=== PATIENT | female | born 1985 | race Caucasian/White ===

== ENCOUNTER 2017-10-31 13:22 | Outpatient (CLI) | payer BC ==
--- NOTE | 2017-10-31 18:06 | RAD ---
RIGHT HIP ARTHROGRAM: 10/31/17 HISTORY: 31-year-old female with history of tear right acetabular labrum, right hip pain. . FLUOROSCOPY TIME: 2.0 minutes with two portable fluoroscopic spot films. DOSE: 315.3 uGy*m2. Following informed consent, the right hip was prepped and draped in the usual sterile fashion. Local anesthesia was obtained with 1% Xylocaine. A 25 gauge spinal needle was introduced into the anterolat eral aspect of the right hip joint. A mixture of gadolinium and intravenous contrast media was inject ed. Two portable fluoroscopic spot images were performed to confirm intra-articular location. IMPRESSION: Successful right hip arthrogram. Patient tolerated the procedure well and was moved to MRI for post a rthrogram MRI to follow. POS: [facility]
--- NOTE | 2017-10-31 18:45 | MRI ---
RIGHT HIP POST ARTHROGRAM CONTRAST: 10/31/17 HISTORY: 31-year-old female with right hip pain and concern for right acetabular labral tear. [facility] Multiplanar and multisequence MRI examination of the right hip demonstrates a linear area of abnormal high signal involving the anterior labrum, evidence for a labral tear. There is no evidence for abno rmal marrow signal to suggest fracture, avascular necrosis, acute stress injury. No evidence for acu te muscle or tendon injury. IMPRESSION: Small anterior labral tear. POS: [facility]
== END 2017-10-31 13:23 | disposition home or self-care (01) ==
LOC: RAD 13:22
PROVIDERS: ATTEND Orthopaedic Surgery
DX: S73.191A Other sprain of right hip, initial encounter (principal); Z98.890 Other specified postprocedural states
CPT/HCPCS: 27093

== ENCOUNTER 2018-03-27 09:25 | Observation (INO) | payer BC ==
[2018-03-27 10:03] LABS: #Basophils 0.1 thou/uL (0.0-0.2); #Eosinphils 0.2 thou/uL (0.0-0.7); #Monocytes 0.3 thou/uL (0.11-0.59); #Neutrophils 4.4 thou/uL (1.40-6.50); %Lymphocytes 28.2 % (21.0-51.0); %Monocytes 4.7 % (0.0-10.0); %Neutrophils 63.1 % (42.0-75.0); Hemoglobin 14.4 g/dL (12.0-16.0); Mean Corpuscular HGB CONC 34.3 g/dL (32.0-36.0); Mean Corpuscular Volume 93.4 fl (81.0-99.0); Mean Platelet Volume 7.2 fL (7.4-10.4); Platelet Count 304 thou/uL (130-400); RBC Distribution Width 11.2 % (11.5-14.5); Red Blood Cell (RBC) Count 4.49 mill/uL (4.20-5.40); White Blood Cell (WBC) Count 6.9 thou/uL (4.8-10.8)
[2018-03-27] MEDS ORDERED: Ondansetron ODT 4 MG TAB ONE (10:10)
[2018-03-27 10:25] LABS: ALT (SGPT) 10 U/L (8-55); AST (SGOT) 12 U/L (5-34); Albumin 4.1 g/dL (3.5-5.0); Alkaline Phosphatase 50 U/L (40-150); Anion Gap 14 mmol/L (10-20); BUN (Urea Nitrogen) 13 mg/dL (7.0-18.7); Bilirubin, Total 0.6 mg/dL (0.2-1.2); Calc. Creatinine Clearance 0 mL/min (70-130); Calcium 9.3 mg/dL (7.8-10.44); Carbon Dioxide 20 mmol/L (22-29); Chloride 106 mmol/L (98-107); Estimated GFR-MDRD 80; Glucose 112 mg/dL (70-105); Lipase 15 U/L (8-78); Potassium 4.2 mmol/L (3.5-5.1); Protein, Total 7.1 g/dL (6.0-8.3); Sodium 136 mmol/L (136-145)
[2018-03-27 10:52] LABS: Bilirubin Negative (Negative); Blood, Urine Negative (Negative); Clarity CLOUDY (Clear); Glucose, Urine (Dipstick) Negative (Negative); Leukocyte Trace (Negative); Nitrite Negative (Negative); Protein, Urine (Dipstick) Trace mg/dL (Neg-Trace); Specific Gravity, Urine 1.019 (1.002-1.036); Urobilinogen 0.2 mg/dL (0.2-1.0); pH, Urine 7.5 (5.0-9.0)
[2018-03-27 10:55] LABS: Pregnancy Test - Urine (BHCG) Negative (Negative); Pregu Control Background? CLEAR/WHITE (CLR/WHITE); Pregu Control Bar Appear? YES (CONTROL BAR); Specific Gravity 1.019 (1.002-1.036)
[2018-03-27 10:56] LABS: Bacteria/HPF None Seen HPF (None Seen); Pathc Cast-AUWi Flag 0.58 (0-2.49); Squamous Epithelial 21-50 HPF (0-3)
[2018-03-27 11:07] LABS: Hyaline Casts/LPF 0-3 HYALINE CAST LPF (0-3 Hyaline); Renal Epithelial None Seen HPF (0-3); Transitional Epithelial 0-3 HPF (0-3)
[2018-03-27] MEDS ORDERED: ISOVUE-370 76%-LOCM 1 ML ONE (11:16)
[2018-03-27] MEDS ORDERED: Dicyclomine 20 MG TAB ONE (11:51)
--- NOTE | 2018-03-27 12:34 | CT ---
CT OF ABDOMEN AND PELVIS WITH IV CONTRAST: Date: 03-27-18 Provided Clinical History: Diffuse lower abdominal pain. FINDINGS: The visualized lung bases are free of significant opacity. The liver, spleen, pancreas, kidneys, and adrenal glands demonstrate an unremarkable CT appearance. Evaluation of the pelvis is limited due to the lack of oral contrast material. There is apparent flui d density within the small bowel mesentery in the pelvis. The appendix is incompletely visualized, th ough the visualized portions appear normal. There is no evidence for bowel obstruction. There is no e vidence for free air. Assessment for inflammatory fat stranding is limited without oral contrast give n the paucity of intraperitoneal fat. The regional vascular structures appear normal. The osseous structures demonstrate no concerning lyti c or blastic lesions. IMPRESSION: 1. Nonspecific fluid density within the small bowel mesentery within the pelvis, which may indicate a n inflammatory process. Evaluation is limited without oral contrast material. POS: [facility]
[2018-03-27] MEDS ORDERED: Metoclopramide HCl 10 MG/2 ML VIAL ONE (14:47)
[2018-03-27] MEDS ORDERED: Morphine 4 MG/ML VIAL ONE ×2 (15:13→16:56)
[2018-03-27] MEDS ORDERED: Piperacillin/Tazobactam 4.5 GM VIAL ONE (16:56)
[2018-03-27] MEDS ORDERED: HYDROcodone/Acetaminophen 5/325 mg Tablet PO PRN ×2 (18:36)
[2018-03-27] MEDS ORDERED: Ondansetron HCl/PF 4 MG/2 ML Vial IVP PRN ×2 (18:36→19:00)
[2018-03-27] MEDS ORDERED: Ondansetron ODT 4 MG TAB SL PRN (18:36)
[2018-03-27] MEDS ORDERED: Acetaminophen 325 MG TAB PO PRN ×2 (18:36→19:00)
[2018-03-27] MEDS ORDERED: Mag-Al 1200 mg/1200 mg/30 ML UDCUP PO PRN (19:00)
[2018-03-27] MEDS ORDERED: Metoclopramide HCl 10 MG/2 ML VIAL IVP PRN (19:00)
[2018-03-27] MEDS ORDERED: Ondansetron ODT 4 MG TAB PO PRN (19:00)
[2018-03-27] MEDS ORDERED: Morphine 4 MG/ML VIAL SLOW IVP PRN ×2 (19:00)
--- NOTE | 2018-03-27 19:33 | HP ---
PRIMARY CARE PHYSICIAN: Dr. Regalado. CHIEF COMPLAINT: Abdominal pain. HISTORY OF PRESENT ILLNESS: Ms. Betancur is a pleasant 32-year-old female that has no significant histor y except for migraine headaches. She says that she was doing fine until about 7:30 this morning when she awoke with severe abdominal pain. She says that she thought it could be because she had not had a bowel movement on the day before, so she says she drinks a glass of water and tried to sit on the commode with no relief, then she says she started having severe pain and a massive sweat and thought that she was going to pass out. By that time, she did have a bowel movement. It was normal and she thought the pain would get better, but it did not. She says then she started vomiting. She says she believes she vomited about 18 times. She says the vomiting will occur after the pain got excruciati ngly bad. She says that the pain is worse when she stands up straight or if she lays flat, otherwise it is constant and it is there and it is about 10/10. She says she has never had pain like this bef ore. The only thing that she notes is that recently she had seen a set up inspector because she thought that she was having some type of MANAGER CASE problem due to some lower abdominal pain. She said she had a tr ansvaginal ultrasound reportedly this was normal, but it was found that she was constipated and was t old to take MiraLax and it actually got better. She was also around the same time placed empirically on Protonix due to possible gastritis and she said she finished the Protonix about 2 days ago. Othe rwise, the patient says she continues to have pain despite being on morphine. CT scan in the ER was essentially negative as well as her lab work and she is being placed in observation. REVIEW OF SYSTEMS: Constitutional: No fevers, chills, no night sweats, no weight loss. HEENT: No headaches, no dizziness, no visual changes, no sore throat, rhinorrhea, neck pain, no adenopathy. Pu lmonary: No hemoptysis, no cough, no wheezing. Cardiovascular: She denies any chest pain, no short ness of breath, no PND, no orthopnea. Gastrointestinal: Is as the history of present illness. Ther e has been no hemoptysis, no melena. Genitourinary: No urinary frequency, hematuria, no hesitancy. Musculoskeletal: No muscle pains, weakness or joint pains. Neurologic: No focal weakness, numbnes s, no seizures. Psychiatric: No symptoms of anxiety or depression. Skin and Integument: No skin c hanges. No rash. PAST MEDICAL HISTORY: Significant for migraine headaches and hypoglycemia, she says when she was muc h younger to the point where she would pass out. PAST SURGICAL HISTORY: She has had a right hip surgery due to a torn labrum and also wisdom teeth re moved. ALLERGIES: Skelaxin. SOCIAL HISTORY: She is , no children. She is a former smoker. She quit 6 years ago. Prior to that, she smoked for about 7 years, half a pack a day, occasionally drinks. No illicit drug use. FAMILY HISTORY: Significant for hypertension in her mother as well as asthma and neuropathy in her f ather, which was not due to diabetes. MEDICATIONS: Inderal, Minastrin, tramadol and Tylenol No. 3. PHYSICAL EXAMINATION: GENERAL: She is well-developed and well-nourished. HEENT: Pupils are equal, round, and reactive. Extraocular muscles are intact. Sclerae are anicteri c. Throat: There is no erythema, no exudates. NECK: No adenopathy, no bruits. LUNGS: Clear to auscultation bilaterally. There is no wheezing, no rales. CARDIOVASCULAR: She has a normal S1, S2. I do not appreciate an S3 or S4. No murmurs, clicks or ru bs. ABDOMEN: Soft. She has some diffuse tenderness primarily in the right and left lower quadrants. Th ere was no guarding. She has a positive bowel sounds and there is no organomegaly. EXTREMITIES: There is no clubbing, cyanosis, no edema. NEUROLOGICALLY: The exam is grossly nonfocal. SKIN/INTEGUMENT: There are no skin changes. No rashes. SIGNIFICANT LABORATORY DATA: White blood cell count was 6.9, hemoglobin 14.4, hematocrit is 41.9, pl atelet count is 304. Sodium 136, potassium 4.2, chloride is 106, CO2 is 20, BUN of 13, creatinine 0. 83, glucose is 112. Urinalysis was essentially negative. Urine test was negative. She cook d a CT scan of the abdomen and pelvis and there was some nonspecific fluid density in the small bowel mesentery, which may indicate an inflammatory process. ASSESSMENT AND PLAN: This is a 32-year-old female that presents with intractable abdominal pain for the last almost 12 hours now. It has been only partially relieved with morphine; however, she does n ot have any worrisome findings such as elevated white blood cell count or findings to suggest obstruc tion on CT scan. Lipase was normal and there is no fever; however, due to her continued pain, she wi ll be placed in observation, placed on fluid resuscitation as well as IV antiemetics and medication f or pain. Given no evidence of infection, we will hold off on any antibiotics at this time and repeat her chemistry panel and CBC in the morning and repeat her abdominal exam. It is possible that this could be some type of viral syndrome and hopefully we will resolve spontaneously. Otherwise, if ther e is no resolution of her symptoms, then GI can be consulted. We will also get an KOBE and the remote possibility that this could be autoimmune in nature.
[2018-03-27 19:39] LABS: Complement-C4 22.9 mg/dL (15-57)
[2018-03-27 20:08] VITALS: BMI 18.8
[2018-03-27] MEDS: Sodium Chloride 0.9% 1,000 ML IV SCH (20:26)
[2018-03-27] MEDS: Famotidine 20 MG TAB PO SCH (20:29)
[2018-03-27] MEDS: HYDROcodone/Acetaminophen 5/325 mg Tablet PO PRN (22:07)
[2018-03-28] MEDS: Sodium Chloride 0.9% 1,000 ML IV SCH ×2 (03:55→11:15)
[2018-03-28 04:17] LABS: #Eosinphils 0.1 thou/uL (0.0-0.7); #Lymphocytes 2.2 thou/uL (1.20-3.40); #Monocytes 0.6 thou/uL (0.11-0.59); #Neutrophils 6.8 thou/uL (1.40-6.50); %Basophils 0.3 % (0.0-1.0); %Eosinophils 0.7 % (0.0-10.0); %Lymphocytes 22.6 % (21.0-51.0); %Monocytes 6.2 % (0.0-10.0); %Neutrophils 70.2 % (42.0-75.0); Hemoglobin 12.7 g/dL (12.0-16.0); Mean Corpuscular HGB CONC 34.3 g/dL (32.0-36.0); Mean Corpuscular Hemoglobin 32.1 pg (27.0-31.0); Mean Corpuscular Volume 93.5 fl (81.0-99.0); Mean Platelet Volume 7.1 fL (7.4-10.4); Platelet Count 259 thou/uL (130-400); Red Blood Cell (RBC) Count 3.97 mill/uL (4.20-5.40); White Blood Cell (WBC) Count 9.6 thou/uL (4.8-10.8)
[2018-03-28 04:44] LABS: ALT (SGPT) 8 U/L (8-55); AST (SGOT) 13 U/L (5-34); Albumin 3.5 g/dL (3.5-5.0); Alkaline Phosphatase 40 U/L (40-150); Anion Gap 12 mmol/L (10-20); BUN (Urea Nitrogen) 13 mg/dL (7.0-18.7); Bilirubin, Total 0.6 mg/dL (0.2-1.2); Calc. Creatinine Clearance 112 mL/min (70-130); Calcium 8.5 mg/dL (7.8-10.44); Carbon Dioxide 21 mmol/L (22-29); Chloride 109 mmol/L (98-107); Estimated GFR-MDRD Greater than 90; Globulin 2.3 g/dL (2.4-3.5); Glucose 72 mg/dL (70-105); Lipase 6 U/L (8-78); Potassium 3.9 mmol/L (3.5-5.1); Protein, Total 5.8 g/dL (6.0-8.3); Sodium 138 mmol/L (136-145)
[2018-03-28] MEDS: HYDROcodone/Acetaminophen 5/325 mg Tablet PO PRN (06:30)
[2018-03-28] MEDS: Famotidine 20 MG TAB PO SCH (07:52)
[2018-03-28] MEDS ORDERED: Ketorolac Tromethamine 30 MG/ML VIAL IVP SCH (10:30)
[2018-03-28] MEDS ORDERED: diphenhydrAMINE 50 MG/ML VIAL IVP SCH (10:30)
[2018-03-28 11:22] VITALS: BP 100/58; TEMP 97.9
[2018-03-28] MEDS ORDERED: Fioricet 325/50/40 mg Tablet PO PRN (11:50)
--- NOTE | 2018-03-28 11:57 | PDOC.PN ---
- Subjective Encounter Start Date: 03/28/18 Encounter Start Time: 11:51 Seen and examined for intractable abdominal pain. Pain resolved. However patient complains of headaches today. No acute events overnight. - Objective Resuscitation Status: Resuscitation Status FULL:Full Resuscitation MAR Reviewed: Yes Vital Signs & Weight: Vital Signs (12 hours) Temp Pulse Resp BP Pulse Ox 03/28/18 11:20 97.9 F 79 16 100/58 L 85 L 03/28/18 08:00 98.4 F 81 16 03/28/18 07:31 98.4 F 81 16 111/66 99 03/28/18 03:56 98.6 F 74 14 99/52 L 97 Weight Admit Weight 120 lb Weight 120 lb 6.4 oz I&O: 03/27/18 03/28/18 03/29/18 06:59 06:59 06:59 Intake Total 1722 1105 Balance 1722 1105 Result Diagrams: 03/28/18 04:01 03/28/18 04:01 Phys Exam - Physical Examination Constitutional: NAD HEENT: PERRLA, moist MMs, sclera anicteric, oral pharynx no lesions Neck: no JVD, supple, full ROM Respiratory: no wheezing, no rales, no rhonchi, clear to auscultation bilateral Cardiovascular: RRR, no significant murmur, no rub Gastrointestinal: soft, non-tender, no distention, positive bowel sounds Musculoskeletal: no edema, pulses present Neurological: non-focal, moves all 4 limbs Skin: no rash, normal turgor Dx/Plan (1) Migraine headache Code(s): G43.909 - MIGRAINE, UNSP, NOT INTRACTABLE, WITHOUT STATUS MIGRAINOSUS Status: Acute Qualifiers: Migraine type: without aura Status migrainosus presence: without status migrainosus Intractability: not intractable Qualified Code(s): G43.009 - Migraine without aura, not intractable, without status migrainosus (2) Acute abdominal pain Code(s): R10.9 - UNSPECIFIED ABDOMINAL PAIN Status: Resolved - Plan cont current plan of care, out of bed/ambulate Improved following Toradol. Will be started on Fioricet. Monitor vital signs closely. Likely discharge tomorrow. Review of Systems - Medications/Allergies Allergies/Adverse Reactions: Allergies Allergy/AdvReac Type Severity Reaction Status Date / Time metaxalone [From Skelaxin] Allergy Hives Verified 03/27/18 20:13 Medications: Current Medications Acetaminophen (Tylenol) 650 mg PO Q4H PRN PRN Reason: Headache/Fever or Pain Hydrocodone Bitart/Acetaminophen ([place] 5/325) 1 tab PO Q4H PRN PRN Reason: Moderate Pain (4-6) Last Admin: 03/28/18 06:30 Dose: 1 tab Al Hydroxide/Mg Hydroxide (Maalox) 30 ml PO Q6H PRN PRN Reason: Heartburn or Indigestion Diphenhydramine HCl (Benadryl) 25 mg IVP NOW [facility] Stop: 03/28/18 12:30 Last Admin: 03/28/18 10:20 Dose: 25 mg Famotidine (Pepcid) 20 mg PO BID [facility] Last Admin: 03/28/18 07:52 Dose: 20 mg Sodium Chloride (Normal Saline 0.9%) 1,000 mls @ 125 mls/hr IV .Q8H [facility] Last Admin: 03/28/18 11:15 Dose: 1,000 mls Ketorolac Tromethamine (Toradol) 30 mg IVP NOW [facility] Stop: 03/28/18 12:30 Last Admin: 03/28/18 10:21 Dose: 30 mg Metoclopramide HCl (Reglan) 5 mg IVP Q4H PRN PRN Reason: Nausea Last Admin: 03/28/18 07:52 Dose: 5 mg Ondansetron HCl (Zofran Odt) 4 mg PO Q6H PRN PRN Reason: Nausea/Vomiting Ondansetron HCl (Zofran) 4 mg IVP Q6H PRN PRN Reason: Nausea/Vomiting
--- NOTE | 2018-03-29 01:14 | DIS ---
DATE OF ADMISSION: 03/27/2018 DATE OF DISCHARGE: 03/28/2018 DISCHARGE DIAGNOSES: Migraine headaches, acute abdominal pain. CONSULTS: None. HISTORY OF PRESENT ILLNESS AND HOSPITAL COURSE: Ms. Chika Betancur is a 32-year-old female who was adm itted to the hospital after a bout of abdominal pain which started at 7:30 on the morning of admissio n, associated with diaphoresis. Pain was rated 10/10, worse when she stands up straight or lays down flat. She reported being placed on Protonix due to possible gastritis and finished her Protonix abo ut 2 days before presenting to the hospital. Her physical examination was insignificant apart from d iffuse tenderness primarily in the right and left lower quadrants with no guarding. Bowel sounds are positive and there was no organomegaly. CBC was essentially normal. Serum chemistry also showed no pathology. Urinalysis was essentially negative. test was also negative. She had a CT sc an of her abdomen and pelvis, which shows some nonspecific fluid density in the small bowel mesentery , which may indicate an inflammatory process. She was started on pain control after an assessment of intractable abdominal pain which then lasted for about 12 hours was made, it was partially relieved by morphine. She was also placed on antiemetics with partial relief. On day 2 of admission, abdomin al pain has resolved, so further investigation was not deemed necessary at this point in time. She, however, had migraine headaches which her current medications did not resolve. She was given one dos e of Toradol and Benadryl with complete resolution of the migraine headaches. She was then discharge d on her home medications. While in hospital, KOBE screen was done and this will be followed with her primary care physicians. There is no indication for GI consult as abdominal pain had completely res olved on day 2. LABORATORY DATA: WBC 9.6, hemoglobin 12.7, platelet count 259,000. Sodium 138, potassium 3.9, chlor ellie 109, carbon dioxide 21, anion gap 12, BUN 13, creatinine 0.63, glucose 72, calcium 8.5. IMAGING: Abdomen/pelvis CT: Result as stated in the HPI/hospital course. PROCEDURES: None. DISCHARGE MEDICATIONS: Propranolol hydrochloride 120 mg daily, norethindrone, estradiol with iron on e tablet daily. CONDITION AT DISCHARGE: Stable and improved. CARE GOALS: She is to follow up with her primary care physician after discharge. ACTIVITY: To resume as tolerated. DIET: Regular. REFERRALS: None. CODE STATUS: FULL. DISCHARGE TIME: Sixty-five minutes including chart review and documentation.
[2018-03-29 16:44] LABS: ANA Symphony (Qualitative) Negative (Negative); dsDNA IgG Antibody 0.9 IU/mL (<10 Negative)
[2018-03-30 02:08] LABS: Chlamydia by PCR Not Detected (NotDetected); GC by PCR Not Detected (NotDetected)
== END 2018-03-28 13:05 | disposition home or self-care (01) ==
LOC: ERS 09:25 → 2SW 16:41
PROVIDERS: ADMIT Internal Medicine; ATTEND Internal Medicine
DX: R10.9 Unspecified abdominal pain (principal); G43.909 Migraine, unspecified, not intractable, without status migrainosus; Z88.8 Allergy status to other drugs, medicaments and biological substances; Z87.891 Personal history of nicotine dependence; Z79.899 Other long term (current) drug therapy
CPT/HCPCS: 36415; 74177; 80053; 81003; 81015; 81025; 83690; 85025; 86038; 86160; 86225; 87480; 87491; 87510; 87591; 87660; 96361; 96365; 96367; 96375; 96376; G0378; J1200; J1885; J2270; J2543; J2765; Q0162